=== PATIENT | female | born 1950 | race African-American/Black ===

== ENCOUNTER 2018-09-17 15:27 | Emergency (ER) | payer MEDICARE ==
--- NOTE | 2018-09-17 17:45 | ER Document Report ---
ED Medical Screen (RME) - General Chief Complaint: Leg Swelling Stated Complaint: LEG SWELLING/PAIN Time Seen by Provider: 09/17/18 17:31 - HPI Notes: 09/17/18 17:40 Patient is a 67-year-old female with a history of psoriasis, asthma, and sleep apnea who presents the emergency department complaining of bilateral lower extremity edema with the left significantly more swollen than the right over the last week. Patient states that over the course of the last month her psoriasis rash has significantly spread to her legs and is becoming sore. Patient states that she has chronic dyspnea on exertion without any significant cardiopulmonary medical history that she is aware of. Denies any headache, fever, neck pain, URI, sore throat, chest pain, syncope, wheeze, abdominal pain, nausea/vomiting/diarrhea, urinary retention, dysuria, hematuria. I have treated and performed a rapid initial assessment of this patient. A comprehensive ED assessment and evaluation of the patient, analysis of test results and completion of medical decision making process will be conducted by additional ED providers. PHYSICAL EXAMINATION: GENERAL: Well-appearing, well-nourished and in no acute distress. A&Ox4. Answers questions appropriately. LUNGS: Breath sounds clear to auscultation bilaterally and equal. No wheezes rales or rhonchi. HEART: Regular rate and rhythm without murmurs, rubs, gallops. Extremities: LLE has 2+ pitting edema. RLE trace to 1+ pitting edema. NEUROLOGICAL: Normal speech, normal gait. PSYCH: + mildly erythemic nodular/plaque like rash to the b/l LE's. + tenderness to most of them w/o obvious fluctuance, streaks, or purulence. - Related Data Allergies/Adverse Reactions: Penicillins Allergy (Verified 09/17/18 15:34) Physical Exam - Vital signs Vitals: Temp Pulse Resp BP Pulse Ox 98.7 F 94 22 H 125/85 100 09/17/18 15:46 09/17/18 15:46 09/17/18 15:46 09/17/18 15:46 09/17/18 15:46 Course - Vital Signs Vital signs: Temp Pulse Resp BP Pulse Ox 98.7 F 94 22 H 125/85 100 09/17/18 15:46 09/17/18 15:46 09/17/18 15:46 09/17/18 15:46 09/17/18 15:46
--- NOTE | 2018-09-17 18:02 | RADIOLOGY REPORT (SQ) ---
EXAM DESCRIPTION: CHEST 2 VIEWS COMPLETED DATE/TIME: 09/17/2018 5:52 pm REASON FOR STUDY: PALACIOS COMPARISON: None. EXAM PARAMETERS: NUMBER OF VIEWS: two views TECHNIQUE: Digital Frontal and Lateral radiographic views of the chest acquired. RADIATION DOSE: NA LIMITATIONS: none FINDINGS: LUNGS AND PLEURA: No opacities, masses or pneumothorax. No pleural effusion. MEDIASTINUM AND HILAR STRUCTURES: No masses or contour abnormalities. HEART AND VASCULAR STRUCTURES: Heart normal size. No evidence for failure. BONES: No acute findings. HARDWARE: None in the chest. OTHER: No other significant finding. IMPRESSION: NO ACUTE RADIOGRAPHIC FINDING IN THE CHEST. TECHNICAL DOCUMENTATION: JOB ID: [id number] [employer]- All Rights Reserved Reading location - IP/workstation name: [email or web address]
--- NOTE | 2018-09-17 19:57 | RADIOLOGY REPORT (SQ) ---
EXAM DESCRIPTION: VENOUS UNILATERAL LOWER COMPLETED DATE/TIME: 09/17/2018 7:48 pm REASON FOR STUDY: LLE edema > Rt COMPARISON: None. TECHNIQUE: Dynamic and static do scale and color images acquired of the left leg venous system. Se lected spectral images acquired with additional compression and augmentation maneuvers. The contralat eral common femoral vein and saphenofemoral junction were also imaged. Images stored on PACS. LIMITATIONS: None. FINDINGS: COMMON FEMORAL: Normal phasicity, compression and augmentation. No visualized echogenic ma terial on do scale. No defects on color images. FEMORAL: Normal compression and augmentation. No visualized echogenic material on do scale. No defe cts on color images. POPLITEAL: Normal compression, augmentation. No visualized echogenic material on do scale. No defec ts on color images. CALF VESSELS: Normal compression, augmentation. No visualized echogenic material on do scale. No de fects on color images. GSV and SSV: Normal compression, augmentation. No visualized echogenic material on do scale. No def ects on color images. ANY DEEP VENOUS INSUFFICIENCY: Not evaluated. ANY EVIDENCE OF POPLITEAL CYST: No. OTHER: No other significant finding. CONTRALATERAL COMMON FEMORAL VEIN AND SAPHENOFEMORAL JUNCTION: Normal phasicity, compression and augmentation. No visualized echogenic material on do scale. No de fects on color images. IMPRESSION: NO EVIDENCE DVT OR SVT IN THE LEFT LEG. TECHNICAL DOCUMENTATION: JOB ID: [id number] [employer]- All Rights Reserved Reading location - IP/workstation name: [email or web address]
[2018-09-17 20:09] LABS: ABSOLUTE BASOPHILS # (AUTO) 0.1 10^3/uL (0.0-0.2); ABSOLUTE EOSINOPHILS # (AUTO) 0.2 10^3/uL (0.0-0.6); ABSOLUTE LYMPHOCYTES (AUTO) 2.1 10^3/uL (0.5-4.7); ABSOLUTE MONOCYTES (AUTO) 0.8 10^3/uL (0.1-1.4); ABSOLUTE NEUT (AUTO) 3.9 10^3/uL (1.7-8.2); BASOPHILS % (AUTO) 0.7 % (0-2); EOSINOPHILS % (AUTO) 2.3 % (0-6); HEMATOCRIT 38.3 % (36.0-47.0); HEMOGLOBIN 13.1 g/dL (12.0-15.5); LYMPHOCYTES % (AUTO) 29.9 % (13-45); MEAN CORPUSCULAR HEMOGLOBIN 29.9 pg (27.0-33.4); MEAN CORPUSCULAR HGB CONC 34.2 g/dL (32.0-36.0); MEAN CORPUSCULAR VOLUME 87 fl (80-97); MONOCYTES % (AUTO) 11.5 % (3-13); PLATELET COUNT 300 10^3/uL (150-450); RED BLOOD COUNT 4.39 10^6/uL (3.72-5.28); SEGMENTED NEUTROPHILS % (AUTO) 55.6 % (42-78); TOTAL CELLS COUNTED % (AUTO) 100 %; WHITE BLOOD COUNT 6.9 10^3/uL (4.0-10.5)
[2018-09-17 20:31] LABS: ALANINE AMINOTRANSFERASE 44 U/L (9-52); ALBUMIN 4.3 g/dL (3.5-5.0); ALKALINE PHOSPHATASE 132 U/L (38-126); ANION GAP 11 (5-19); ASPARTATE AMINO TRANSFERASE 44 U/L (14-36); BILIRUBIN,DIRECT 0.2 mg/dL (0.0-0.4); BILIRUBIN,TOTAL 0.4 mg/dL (0.2-1.3); BLOOD UREA NITROGEN 11 mg/dL (7-20); CALCIUM 9.5 mg/dL (8.4-10.2); CARBON DIOXIDE 27 mmol/L (22-30); CHLORIDE 104 mmol/L (98-107); GLUCOSE 93 mg/dL (75-110); POTASSIUM 4.3 mmol/L (3.6-5.0); TOTAL PROTEIN 7.5 g/dL (6.3-8.2)
--- NOTE | 2018-09-17 22:56 | EKG REPORT ---
SEVERITY:- BORDERLINE ECG - SINUS RHYTHM BORDERLINE PROLONGED QT INTERVAL : Confirmed by: Blas Suárez 17-Sep-2018 22:55:14
--- NOTE | 2018-09-18 01:16 | ER Document Report ---
ED General - General Chief Complaint: Leg Swelling Stated Complaint: LEG SWELLING/PAIN Time Seen by Provider: 09/17/18 17:31 Notes: 67-year-old female to the emergency department chief complaint of lower extremity swelling. Patient has noticed large amount of redness to her legs. Has a history of psoriasis but thinks may be it is something else. Denies any chest pain, shortness of breath, abdominal pain or other issues. Is having some joint pain as well. - HPI Onset: Last week Onset/Duration: Gradual, Worse Quality of pain: Achy Severity: Moderate Pain Level: 3 - Related Data Allergies/Adverse Reactions: Penicillins Allergy (Verified 09/17/18 15:34) Past Medical History - General Information source: Patient - Social History Smoking Status: Former Smoker Chew tobacco use (# tins/day): No Frequency of alcohol use: Rare Drug Abuse: None Family History: Reviewed & Not Pertinent Patient has suicidal ideation: No Patient has homicidal ideation: No Pulmonary Medical History: Reports: Hx Asthma Renal/ Medical History: Denies: Hx Peritoneal Dialysis Musculoskeletal Medical History: Reports Hx Arthritis Review of Systems - Review of Systems Notes: Constitutional: denies: Chills, Diaphoresis, Fever, Malaise, Weakness EENT: denies: Eye discharge, Blurred vision, Tearing, Double vision, Nose congestion, Nose discharge, Throat swelling, Mouth pain Cardiovascular: denies: Palpitations, Heart racing, Orthopnea, Dyspnea, Chest p ain Respiratory: denies: Cough, Hurts to breathe, Wheezing, Shortness of breath Gastrointestinal: denies: Abdominal pain, Diarrhea, Nausea, Vomiting, Black stools, bright red blood in stool Genitourinary: denies: Burning, Dysuria, Discharge, Frequency, Flank pain, Hematuria Musculoskeletal: denies: Joint swelling, Muscle pain, Muscle stiffness, back pain. Positive for joint pain and Hematologic/Lymphatic: denies: Anemia, Easy bleeding, Easy bruising, Blood clots Neurological/Psychological: denies: Confusion, Dementia, Depression, Loss of consciousness Skin: redness and increassd Physical Exam - Vital signs Vitals: Temp Pulse Resp BP Pulse Ox 98.7 F 94 22 H 125/85 100 09/17/18 15:46 09/17/18 15:46 09/17/18 15:46 09/17/18 15:46 09/17/18 15:46 Interpretation: Normal - General General appearance: Appears well, Alert - HEENT Head: Normocephalic, Atraumatic Eyes: Normal Pupils: PERRL - Respiratory Respiratory status: No respiratory distress Chest status: Nontender Breath sounds: Normal Chest palpation: Normal - Cardiovascular Rhythm: Regular Heart sounds: Normal auscultation Murmur: No - Abdominal Inspection: Normal Distension: No distension Bowel sounds: Normal Tenderness: Nontender Organomegaly: No organomegaly - Back Back: Normal, Nontender - Extremities General upper extremity: Normal inspection, Nontender, Normal color, Normal ROM, Normal temperature General lower extremity: Normal inspection, Nontender, Normal color, Normal ROM, Normal temperature, Normal weight bearing. No: Shae's sign - Neurological Neuro grossly intact: Yes Cognition: Normal Orientation: AAOx4 Ofe Coma Scale Eye Opening: Spontaneous Ofe Coma Scale Verbal: Oriented [place] Coma Scale Motor: Obeys Commands [place] Coma Scale Total: 15 Speech: Normal Motor strength normal: LUE, RUE, LLE, RLE Sensory: Normal - Psychological Associated symptoms: Normal affect, Normal mood - Skin Skin Temperature: Warm Skin Moisture: Dry Skin Color: Other - diffuse redness and cyst symptoms on the bilateral lower extremities, arms consistent with psoriasis. No oozing but there is some edema of the left lower extremity. Course - Re-evaluation Re-evalutation: 09/18/18 06:40 At this time patient is going to benefit from being on some steroids. Initial dose given here. Will prescribe some methylprednisolone as an outpatient. There is some concern for possible concomitant infection with the skin so I am and start her on some doxycycline as well. I have instructed her that she needs to follow-up with her information clerk as soon as possible. Will discharge in stable condition. - Vital Signs Vital signs: Temp Pulse Resp BP Pulse Ox 97.9 F 92 18 116/63 97 09/18/18 01:26 09/18/18 01:26 09/18/18 01:26 09/18/18 01:26 09/18/18 01:26 - Laboratory Result Diagrams: 09/17/18 19:49 09/17/18 19:49 Laboratory results interpreted by me: 09/17/18 19:49 AST 44 H Alkaline Phosphatase 132 H Discharge - Discharge Clinical Impression: Psoriasis Condition: Good Disposition: HOME, SELF-CARE Instructions: Psoriasis ([facility]) Additional Instructions: You have had a significant flareup of psoriasis and you actually may even be de veloping psoriatic arthritis. You need to see your information clerk immediately. Please call their office today to schedule an appointment. I am starting you on Solu-Medrol. There were a few spots that may even be showing signs of infection so I am starting you on doxycycline as well. Please let your information clerk know so that they may see you as soon as possible. Prescriptions: Doxycycline Hyclate 100 mg PO BID 7 Days #14 capsule Methylprednisolone [Medrol] 4 mg PO DAILY 6 Days #21 tablet Forms: Return to Work
[2018-09-18 01:27] VITALS: BP 116/63
[2018-09-18] MEDS ORDERED: METHYLPREDNISOLONE INJ 125 MG/2 ML SDV IM ONE (01:30)
[2018-09-18] MEDS ORDERED: DOXYCYCLINE HYCLATE 100 MG TABLET PO ONE (01:30)
== END 2018-09-18 01:50 | disposition home or self-care (01) ==
LOC: ER 15:27
DX: L40.9 Psoriasis, unspecified (principal); M79.89 Other specified soft tissue disorders; Z87.891 Personal history of nicotine dependence; J45.909 Unspecified asthma, uncomplicated
CPT/HCPCS: 93005; 99284; 96374; 36415; 85025; 80053; 83880; 93971; 71046; 93010; A9270; J2930

== ENCOUNTER 2018-11-13 10:07 | Emergency (ER) | payer MEDICARE, OTHER ==
[2018-11-13] MEDS ORDERED: IPRATROPIUM/ALBUTEROL 0.5-2.5 MG/3 ML AMPUL NEB ONE (10:36)
--- NOTE | 2018-11-13 10:37 | ER Document Report ---
ED Medical Screen (RME) - General Chief Complaint: Chest Pain Stated Complaint: CHEST PAIN Time Seen by Provider: 11/13/18 10:30 Mode of Arrival: Ambulatory Information source: Patient Notes: Patient is a 68-year-old female who presents to the emergency department with complaints of cough, asthma exacerbation and chest pain. Patient reports cough has been ongoing for 1 week, states she has tried using her inhalers at home without relief. Patient reports that she now has right-sided chest pain that radiates into her right shoulder and arm. Denies any nausea, vomiting or fevers. Exam: Lung sounds with mild expiratory wheezes noted bilaterally, mildly increased work of breathing. I have greeted and performed a rapid initial assessment of this patient. A comprehensive ED assessment and evaluation of the patient, analysis of test results and completion of the medical decision making process will be conducted by additional ED providers. Dictation of this chart was performed using voice recognition software; therefore, there may be some unintended grammatical errors. TRAVEL OUTSIDE OF THE [place] IN LAST 30 DAYS: No - Related Data Allergies/Adverse Reactions: Penicillins Allergy (Verified 11/13/18 10:08) Past Medical History - Social History Frequency of alcohol use: None Drug Abuse: None Pulmonary Medical History: Reports: Hx Asthma Renal/ Medical History: Denies: Hx Peritoneal Dialysis Musculoskeltal Medical History: Reports Hx Arthritis Physical Exam - Vital signs Vitals: Temp Pulse Resp BP Pulse Ox 98.2 F 85 15 124/91 H 96 11/13/18 10:25 11/13/18 10:25 11/13/18 10:25 11/13/18 10:25 11/13/18 10:25 Course - Vital Signs Vital signs: Temp Pulse Resp BP Pulse Ox 98.2 F 85 15 124/91 H 96 11/13/18 10:25 11/13/18 10:25 11/13/18 10:25 11/13/18 10:25 11/13/18 10:25
[2018-11-13 11:26] LABS: ABSOLUTE BASOPHILS # (AUTO) 0.1 10^3/uL (0.0-0.2); ABSOLUTE EOSINOPHILS # (AUTO) 0.1 10^3/uL (0.0-0.6); ABSOLUTE LYMPHOCYTES (AUTO) 2.4 10^3/uL (0.5-4.7); ABSOLUTE MONOCYTES (AUTO) 0.6 10^3/uL (0.1-1.4); ABSOLUTE NEUT (AUTO) 2.8 10^3/uL (1.7-8.2); BASOPHILS % (AUTO) 0.9 % (0-2); HEMATOCRIT 39.2 % (36.0-47.0); HEMOGLOBIN 13.2 g/dL (12.0-15.5); LYMPHOCYTES % (AUTO) 39.7 % (13-45); MEAN CORPUSCULAR HEMOGLOBIN 29.6 pg (27.0-33.4); MEAN CORPUSCULAR HGB CONC 33.6 g/dL (32.0-36.0); MEAN CORPUSCULAR VOLUME 88 fl (80-97); MONOCYTES % (AUTO) 9.9 % (3-13); PLATELET COUNT 241 10^3/uL (150-450); RED BLOOD COUNT 4.46 10^6/uL (3.72-5.28); RED CELL DISTRIBUTION WIDTH 13.9 % (11.5-14.0); SEGMENTED NEUTROPHILS % (AUTO) 47.5 % (42-78); TOTAL CELLS COUNTED % (AUTO) 100 %
--- NOTE | 2018-11-13 11:41 | RADIOLOGY REPORT (SQ) ---
EXAM DESCRIPTION: CHEST 2 VIEWS COMPLETED DATE/TIME: 11/13/2018 11:31 am REASON FOR STUDY: cough, sob COMPARISON: 09/17/2018 EXAM PARAMETERS: NUMBER OF VIEWS: two views TECHNIQUE: Digital Frontal and Lateral radiographic views of the chest acquired. RADIATION DOSE: NA LIMITATIONS: none FINDINGS: LUNGS AND PLEURA: No opacities, masses or pneumothorax. No pleural effusion. MEDIASTINUM AND HILAR STRUCTURES: No masses or contour abnormalities. HEART AND VASCULAR STRUCTURES: The heart size has increased since the prior examination. Borderline cardiomegaly. No evidence for failure. BONES: No acute findings. HARDWARE: None in the chest. OTHER: No other significant finding. IMPRESSION: 1. No acute pulmonary findings. 2. Borderline cardiomegaly, since the prior examination dated 09/17/2018. No evidence for failure. C orrelation suggested. TECHNICAL DOCUMENTATION: JOB ID: [id number] [employer]- All Rights Reserved Reading location - IP/workstation name: [email or web address]
[2018-11-13 11:59] LABS: ALANINE AMINOTRANSFERASE 28 U/L (9-52); ALBUMIN 4.1 g/dL (3.5-5.0); ALKALINE PHOSPHATASE 116 U/L (38-126); ANION GAP 9 (5-19); ASPARTATE AMINO TRANSFERASE 26 U/L (14-36); BILIRUBIN,DIRECT 0.3 mg/dL (0.0-0.4); BILIRUBIN,TOTAL 0.5 mg/dL (0.2-1.3); BLOOD UREA NITROGEN 10 mg/dL (7-20); CALCIUM 9.3 mg/dL (8.4-10.2); CARBON DIOXIDE 28 mmol/L (22-30); CHLORIDE 102 mmol/L (98-107); GLUCOSE 89 mg/dL (75-110); POTASSIUM 3.8 mmol/L (3.6-5.0); SODIUM 139.2 mmol/L (137-145); TOTAL PROTEIN 7.9 g/dL (6.3-8.2)
--- NOTE | 2018-11-13 12:24 | EKG REPORT ---
SEVERITY:- NORMAL ECG - SINUS RHYTHM : Confirmed by: Vincent Poole MD 13-Nov-2018 12:22:55
[2018-11-13] MEDS ORDERED: PREDNISONE 20 MG TABLET PO ONE (13:49)
--- NOTE | 2018-11-13 13:54 | ER Document Report ---
ED General - General Chief Complaint: Chest Pain Stated Complaint: CHEST PAIN Time Seen by Provider: 11/13/18 10:30 Mode of Arrival: Ambulatory TRAVEL OUTSIDE OF THE [place] IN LAST 30 DAYS: No - Related Data Allergies/Adverse Reactions: Penicillins Allergy (Verified 11/13/18 10:08) Past Medical History - General Information source: Patient - Social History Smoking Status: Former Smoker Frequency of alcohol use: None Drug Abuse: None Family History: Reviewed & Not Pertinent Patient has suicidal ideation: No Patient has homicidal ideation: No Pulmonary Medical History: Reports: Hx Asthma Renal/ Medical History: Denies: Hx Peritoneal Dialysis Musculoskeletal Medical History: Reports Hx Arthritis Physical Exam - Vital signs Vitals: Temp Pulse Resp BP Pulse Ox 98.2 F 85 15 124/91 H 96 11/13/18 10:25 11/13/18 10:25 11/13/18 10:25 11/13/18 10:25 11/13/18 10:25 Course - Vital Signs Vital signs: Temp Pulse Resp BP Pulse Ox 98.2 F 85 24 H 142/81 H 81 L 11/13/18 10:25 11/13/18 10:25 11/13/18 13:02 11/13/18 13:02 11/13/18 13:02 - Laboratory Result Diagrams: 11/13/18 11:10 11/13/18 11:10 Discharge - Discharge Clinical Impression: Bronchospasm Condition: Good Disposition: HOME, SELF-CARE Instructions: Chest Wall Pain ([facility]) Additional Instructions: Please use your inhaler every 2 hours and he may space out to every 3 then 4 hours as you improved. Take steroids as instructed and follow-up with a local primary care, to which we have referred you. Prescriptions: Albuterol Sulfate [Ventolin Hfa 8 gm Mdi (1 Mdi/ER Disp)] 60 puff IH ASDIR PRN #1 inhaler PRN Reason: Prednisone [Deltasone 20 mg Tablet] 3 tab PO DAILY 5 Days tablet Referrals: [facility] [Provider Group] - Follow up as needed
[2018-11-13 14:02] VITALS: BP 108/77
== END 2018-11-13 14:07 | disposition home or self-care (01) ==
LOC: ER 10:07
DX: J98.01 Acute bronchospasm (principal); R07.9 Chest pain, unspecified; J45.909 Unspecified asthma, uncomplicated
CPT/HCPCS: 93005; 94640; 99284; 36415; 85025; 80053; 84484; 71046; 93010; A9270; J7620